=== PATIENT | female | born 1995 | race African-American/Black ===

== ENCOUNTER 2025-01-19 13:51 | Emergency (ER) | payer OTHER ==
[~2025-01-19] VITALS: Ht 149.9 cm; Wt 86.2 kg
[2025-01-19 14:31] VITALS: TEMP 97.8
[2025-01-19 15:19] LABS: BASOPHILS % 0.3 % (0.0-1.0); EOSINOPHILS # (AUTO) 0.1 (0.0-0.4); EOSINOPHILS % 2.3 % (0.0-6.0); HEMATOCRIT 34.2 % (34.2-44.1); HEMOGLOBIN 11.2 g/dL (12.0-16.0); LYMPHOCYTES # (AUTO) 1.5 (1.0-3.2); LYMPHOCYTES % 24.1 % (18.0-39.1); MEAN CORPUSCULAR HEMOGLOBIN 23.6 pg (28-32); MEAN CORPUSCULAR HGB CONC 32.7 g/dL (31-35); MONOCYTES # (AUTO) 0.6 (0.2-0.8); MONOCYTES % 10.1 % (4.4-11.3); NEUTROPHILS # (AUTO) 3.8 (2.1-6.9); PLATELET COUNT 396 x10e3/uL (140-360); RED BLOOD COUNT 4.75 x10e6/uL (3.6-5.1); WHITE BLOOD COUNT 6.05 x10e3/uL (4.8-10.8)
[2025-01-19 15:34] LABS: ALANINE AMINOTRANSFERASE 34 IU/L (0-55); ALBUMIN 3.9 g/dL (3.5-5.0); ALBUMIN/GLOBULIN RATIO 1.3 (0.8-2.0); ALKALINE PHOSPHATASE 54 IU/L (40-150); ANION GAP 14.8 mmol/L (8-16); BILIRUBIN,TOTAL 0.2 mg/dL (0.2-1.2); BLOOD UREA NITROGEN 7 mg/dL (7-26); BUN/CREATININE RATIO 8 (6-25); CARBON DIOXIDE 21 mmol/L (22-29); CHLORIDE 106 mmol/L (98-107); CREATININE, SERUM 0.91 mg/dL (0.57-1.11); EST GLOMERULAR FILTRATION RATE 89 ML/MIN (>=60); GLUCOSE 84 mg/dL (74-118); LIPASE 51 U/L (8-78); POTASSIUM 3.8 mmol/L (3.5-5.1); SODIUM 138 mmol/L (136-145)
[2025-01-19] MEDS: Morphine 4mg INJECTION 4 MG/ML INJ IV ONE (15:46)
[2025-01-19] MEDS: SODIUM CHLORIDE 0.9% 1000ML 1,000 ML IV ONE (15:46)
[2025-01-19] MEDS: ONDANSETRON HCL INJ 2MG/ML 2ML 2 MG/ML VIAL IV STA (15:46)
[2025-01-19 15:47] VITALS: PULSE 63; RESP 18
[2025-01-19 15:48] LABS: CLARITY,URINE TURBID (CLEAR); COLOR,URINE RED (YELLOW); LEUKOCYTE ESTERASE ,URINE NEGATIVE (NEGATIVE); NITRITE,URINE NEGATIVE (NEGATIVE); PH,URINE 6 (5 - 7)
[2025-01-19 15:49] LABS: BILIRUBIN,URINE SMALL (NEGATIVE); GLUCOSE, URINE NEGATIVE (NEGATIVE); KETONES,URINE TRACE (NEGATIVE); PROTEIN,URINE DIPSTICK >=300 (NEGATIVE); URINE UROBILINOGEN 0.2 mg/dL (0.2 - 1)
[2025-01-19 15:50] LABS: BACTERIA,URINE FEW /HPF; RBC,URINE >50 /HPF (0-5)
[2025-01-19] MEDS ORDERED: KETOROLAC TROME10 MG PO (19:30)
[2025-01-19] MEDS ORDERED: IOPAMIDOL 370 MG/ML 100 ML INFUS..BTL INJ ONE (20:11)
[2025-01-19 22:54] VITALS: BP 128/84; PULSE 84; RESP 18; TEMP 98.3; O2SAT 98
== END 2025-01-19 19:41 | disposition home or self-care (01) ==
LOC: ER 14:28
DX: R10.2 Pelvic and perineal pain (principal); N94.6 Dysmenorrhea, unspecified; R10.30 Lower abdominal pain, unspecified; R11.0 Nausea
CPT/HCPCS: 36415; 74177; 76856; 80053; 81001; 83690; 84702; 85025; 99284; J2270; J2405; J7030; Q9967